=== PATIENT | female | born 1970 | race Caucasian/White ===

== ENCOUNTER 2016-05-23 23:01 | Emergency (ER) | payer OTHER ==
--- NOTE | 2016-05-23 23:28 | ED Physician Documentation ---
General Adult - HISTORIAN Historian: patient - HPI Stated Complaint: abd pain, R flank Chief Complaint: General Adult Timing: still present Further Comments: yes (Pt is a 45 yo female seen frequently in ER for various complaints. Pt presents with R flank pain that began earlier today, together with some nausea. Pt has had urinary frequency, but no dysuria. Pt has had cholecystectomy.) - ROS CONST: other (malaise) EYES/ENT: none CVS/RESP: none GI/: abdominal pain, nausea MS/SKIN/LYMPH: none - PAST HX Past History: other (chronic back pain, depression, GERD, DM2) Allergies/Adverse Reactions: Allergies Allergy/AdvReac Type Severity Reaction Status Date / Time aspirin Allergy Verified 05/23/16 23:30 carbamazepine [From Tegretol] Allergy Verified 05/23/16 23:30 cephalexin monohydrate Allergy Verified 05/23/16 23:30 [From Keflex] codeine [Codeine] Allergy Verified 05/23/16 23:30 diphenhydramine Allergy Verified 05/23/16 23:30 Penicillins Allergy Verified 05/23/16 23:30 strawberry Allergy Verified 05/23/16 23:30 Sulfa (Sulfonamide Allergy Verified 05/23/16 23:30 Antibiotics) [Sulfa(Sulfonamide Antibiotics)] tramadol Allergy Verified 05/23/16 23:30 Home Medications: Ambulatory Orders Medication Instructions Recorded Aripiprazole [Abilify] 10 mg PO HS 05/27/12 Cholecalciferol (Vitamin D3) 1,000 unit PO D 05/27/12 [Vitamin D-3] DULoxetine HCL [Cymbalta] 60 mg PO D 05/27/12 Gabapentin [Neurontin] 300 mg PO D 05/27/12 Multivitamin [Daily Multivitamin] 1 each PO D 05/27/12 Potassium Chloride [Klor-Con M20] 20 meq PO BID 05/27/12 Rosuvastatin Calcium [Crestor] 20 mg PO D 05/27/12 Spironolactone 25 mg PO D 05/27/12 Insulin Glargine,Hum.rec.anlog 40 unit SUBCUT BID 11/12/13 [Lantus Solostar] Furosemide [Lasix] 20 mg PO D 02/04/14 traZODone HCL [Desyrel] 50 mg PO HS 02/24/14 Metformin HCl ER [Glucophage Xr] 1,000 mg PO 0730 05/25/14 Esomeprazole Magnesium [Nexium] 40 mg PO D 09/03/14 Topiramate [Topiramate] 50 mg PO AM 09/03/14 rOPINIRole HCL [Requip] 1 mg PO HS 09/03/14 Albuterol Sulfate [Proair HFA] 1 inh IH Q4 PRN 01/04/15 Sertraline HCl [Zoloft] 100 mg PO D 01/04/15 Sumatriptan Succinate [Imitrex] 100 mg PO PRN PRN 01/04/15 Metoclopramide HCl [Reglan] 1 tab PO QID 05/23/15 Baclofen [Liorasal] 20 mg PO TID 09/01/15 Clindamycin HCl [Cleocin] 300 mg PO Q8 #30 capsule 12/14/15 - SOCIAL HX Smoking History: non-smoker - FAMILY HX Family History: No - VITAL SIGNS Vital Signs: Vital Signs Temp Pulse Resp BP Pulse Ox 118/58 04/27/16 02:15 - REVIEWED ASSESSMENTS Nursing Assessment Reviewed: Yes Vitals Reviewed: Yes Progress - Progress Progress: NS 1 L IVF bolus Zofran 4 mg IV improved General Adult Physical Exam - PHYSICAL EXAM GENERAL APPEARANCE: mild distress EENT: eye inspection normal, pharynx normal NECK: normal inspection, supple RESPIRATORY: no resp distress, chest non-tender, breath sounds normal CVS: reg rate & rhythm, heart sounds normal ABDOMEN: soft, tenderness (RUQ), decreased BS BACK: normal inspection, no CVA tenderness SKIN: warm/dry, normal color EXTREMITIES: non-tender, normal range of motion, no evidence of injury NEURO: oriented X3, motor nml, sensation nml Discharge Clincal Impression: Abdominal pain Qualifiers: Abdominal location: right upper quadrant Qualified Code(s): R10.11 - Right upper quadrant pain Referrals: Myla Carlson MD [Primary Care Provider] - Home Medications: Ambulatory Orders Aripiprazole [Abilify] 10 mg PO HS 05/27/12 Cholecalciferol (Vitamin D3) [Vitamin D-3] 1,000 unit PO D 05/27/12 DULoxetine HCL [Cymbalta] 60 mg PO D 05/27/12 Gabapentin [Neurontin] 300 mg PO D 05/27/12 Multivitamin [Daily Multivitamin] 1 each PO D 05/27/12 Potassium Chloride [Klor-Con M20] 20 meq PO BID 05/27/12 Rosuvastatin Calcium [Crestor] 20 mg PO D 05/27/12 Spironolactone 25 mg PO D 05/27/12 Insulin Glargine,Hum.rec.anlog [Lantus Solostar] 40 unit SUBCUT BID 11/12/13 Furosemide [Lasix] 20 mg PO D 02/04/14 traZODone HCL [Desyrel] 50 mg PO HS 02/24/14 Metformin HCl ER [Glucophage Xr] 1,000 mg PO 0730 05/25/14 Esomeprazole Magnesium [Nexium] 40 mg PO D 09/03/14 Topiramate [Topiramate] 50 mg PO AM 09/03/14 rOPINIRole HCL [Requip] 1 mg PO HS 09/03/14 Albuterol Sulfate [Proair HFA] 1 inh IH Q4 PRN 01/04/15 Sertraline HCl [Zoloft] 100 mg PO D 01/04/15 Sumatriptan Succinate [Imitrex] 100 mg PO PRN PRN 01/04/15 Metoclopramide HCl [Reglan] 1 tab PO QID 05/23/15 Baclofen [Liorasal] 20 mg PO TID 09/01/15 Clindamycin HCl [Cleocin] 300 mg PO Q8 #30 capsule 12/14/15 Condition: Good Decision to Admit: NO Decision Time: 00:34
[2016-05-24] MEDS: ONDANSETRON HCL/PF 4 MG/ 2ML VIAL IVP ONE
[2016-05-24] MEDS: 0.9 % SODIUM CHLORIDE 500 ML IV ONE
[2016-05-24 00:21] LABS: eGFR (African) > 60; eGFR (Non-African) > 60
[2016-05-24 00:22] LABS: BASOPHILS % 0.3 (0.0-1.5); EOSINOPHILS % 2.6 % (0.0-6.8); LYMPHOCYTES # 1.8 # k/uL (0.6-4.0); MEAN CORPUSCULAR HEMOGLOBIN 24.2 pg (28.0-34.0); MONOCYTES # 0.3 # k/uL (0.0-0.9); MONOCYTES % 4.2 % (0.0-11.0); NEUTROPHILS # 4.4 # k/uL (1.4-7.7)
[2016-05-24 01:28] VITALS: BP 118/56
[2016-05-24 06:43] LABS: APPEARANCE,URINE CLEAR (CLEAR); COLOR,URINE YELLOW (YELLOW); OCCULT BLOOD,URINE NEGATIVE (NEGATIVE); PH URINE 7.5 (5.0 - 8.0); UROBILINOGEN URINE 0.2 Eu (0.2-1.0)
--- NOTE | 2016-05-24 06:44 | Diagnostic Imaging Report ---
Report Submission Date: May 23, 2016 11:55:09 PM PLANT INSPECTOR Patient ~ Study Name: ODELL CAPUTO ~ Date: May 23, 2016 11:43:14 PM PLANT INSPECTOR ~ Modality Type: CR Gender: F ~ Description: ABDOMEN : 74 ~ Institution: [facility] Physician: JOANN BARROW ~ ~ ~ ~ KUB Clinical history: Abdominal pain Technique ap supine radiograph of the abdomen Findings: The bowel gas pattern is nonspecific. No renal calcifications are seen. The bones are within normal limits. No abdominal masses identified. Clips of previous cholecystectomy are present. Impression: Postoperative changes of cholecystectomy otherwise Negative KUB ~ Electronically signed on May 23, 2016 11:55:09 PM PLANT INSPECTOR by: Prem RODNEY
== END 2016-05-24 00:55 ==
LOC: ED 23:01
DX: R10.11 Right upper quadrant pain (principal)
CPT/HCPCS: 74000; 80053; 81002; 82150; 85025; J2405; J7060; 96361; 96374; 99283; S1016

== ENCOUNTER 2016-06-06 21:24 | Emergency (ER) | payer OTHER ==
[2016-06-06] MEDS ORDERED: PROMETHAZINE HCL 25 MG/ML VIAL IM ONE (22:46)
[2016-06-06] MEDS ORDERED: 0.9 % SODIUM CHLORIDE 1,000 ML IV ONE (22:57)
--- NOTE | 2016-06-06 23:45 | ED Physician Documentation ---
General Adult - HISTORIAN Historian: patient - HPI Stated Complaint: N/V Chief Complaint: General Adult Additional Information: Began frequent vomiting this afternoon. Has frontal headache. No fever or diarrhea. No abdominal pain but sore muscles from retching. Last finger stick was 145 at about 1800. No insulin taken since vomiting began. - ROS CONST: denies: fever - PAST HX Past History: other (IDDM; seizure disorder) Allergies/Adverse Reactions: Allergies Allergy/AdvReac Type Severity Reaction Status Date / Time aspirin Allergy Verified 06/06/16 22:29 carbamazepine [From Tegretol] Allergy Verified 06/06/16 22:29 cephalexin monohydrate Allergy Verified 06/06/16 22:29 [From Keflex] codeine [Codeine] Allergy Verified 06/06/16 22:29 diphenhydramine Allergy Verified 06/06/16 22:29 Penicillins Allergy Verified 06/06/16 22:29 strawberry Allergy Verified 06/06/16 22:29 Sulfa (Sulfonamide Allergy Verified 06/06/16 22:29 Antibiotics) [Sulfa(Sulfonamide Antibiotics)] tramadol Allergy Verified 06/06/16 22:29 Home Medications: Ambulatory Orders Medication Instructions Recorded Aripiprazole [Abilify] 10 mg PO HS 05/27/12 Cholecalciferol (Vitamin D3) 1,000 unit PO D 05/27/12 [Vitamin D-3] DULoxetine HCL [Cymbalta] 60 mg PO D 05/27/12 Gabapentin [Neurontin] 300 mg PO D 05/27/12 Multivitamin [Daily Multivitamin] 1 each PO D 05/27/12 Potassium Chloride [Klor-Con M20] 20 meq PO BID 05/27/12 Rosuvastatin Calcium [Crestor] 20 mg PO D 05/27/12 Spironolactone 25 mg PO D 05/27/12 Insulin Glargine,Hum.rec.anlog 40 unit SUBCUT BID 11/12/13 [Lantus Solostar] Furosemide [Lasix] 20 mg PO D 02/04/14 traZODone HCL [Desyrel] 50 mg PO HS 02/24/14 Metformin HCl ER [Glucophage Xr] 1,000 mg PO 0730 05/25/14 Esomeprazole Magnesium [Nexium] 40 mg PO D 09/03/14 Topiramate [Topiramate] 50 mg PO AM 04/22/15 rOPINIRole HCL [Requip] 1 mg PO HS 09/03/14 Albuterol Sulfate [Proair HFA] 1 inh IH Q4 PRN 01/04/15 Sertraline HCl [Zoloft] 100 mg PO D 01/04/15 Sumatriptan Succinate [Imitrex] 100 mg PO PRN PRN 01/04/15 Metoclopramide HCl [Reglan] 1 tab PO QID 05/23/15 Baclofen [Liorasal] 20 mg PO TID 09/01/15 Clindamycin HCl [Cleocin] 300 mg PO Q8 #30 capsule 12/14/15 - SOCIAL HX Smoking History: cigarettes - FAMILY HX Family History: No - VITAL SIGNS Vital Signs: Vital Signs Temp Pulse Resp BP Pulse Ox 98.2 F 83 20 138/75 95 06/06/16 22:00 06/06/16 22:00 06/06/16 22:00 06/06/16 22:00 06/06/16 22:00 - REVIEWED ASSESSMENTS Nursing Assessment Reviewed: Yes Vitals Reviewed: Yes Progress - Progress Progress: 0029, 2L NS. Eating ice chips. Nausea and ZARAGOZA resolved. ED Results Lab/Radiology - Orders Orders: ED Orders Category Date Time Status Place Saline Lock/IV Now Care 06/06/16 22:57 Active 0.9 % Sodium Chloride [Normal Saline] 1,000 ml Med 06/06/16 22:57 Active IV Q1H Chem Sticks Med 06/06/16 23:42 Ordered 1 each MC CHEMQ PRN Ketorolac Tromethamine [Toradol] Med 06/06/16 23:39 Once 30 mg IVP NOW ONE Promethazine HCl [Phenergan] Med 06/06/16 22:46 Discontinued 25 mg IM NOW ONE General Adult Physical Exam - PHYSICAL EXAM GENERAL APPEARANCE: mild distress EENT: eye inspection normal, ENT inspection normal, pharynx normal, dry mucous membranes (mild) NECK: normal inspection, supple RESPIRATORY: no resp distress, breath sounds normal CVS: reg rate & rhythm, heart sounds normal, no murmur ABDOMEN: soft, normal bowel sounds, no distension, tenderness (slight, diffuse) RECTAL: deferred BACK: normal inspection SKIN: warm/dry, normal color EXTREMITIES: no evidence of injury NEURO: CN's nml as tested, motor nml, sensation nml, cognition normal Discharge Clincal Impression: Nausea and vomiting Qualifiers: Vomiting type: unspecified Vomiting Intractability: non-intractable Qualified Code(s): R11.2 - Nausea with vomiting, unspecified Home Medications: Ambulatory Orders Aripiprazole [Abilify] 10 mg PO HS 05/27/12 Cholecalciferol (Vitamin D3) [Vitamin D-3] 1,000 unit PO D 05/27/12 DULoxetine HCL [Cymbalta] 60 mg PO D 05/27/12 Gabapentin [Neurontin] 300 mg PO D 05/27/12 Multivitamin [Daily Multivitamin] 1 each PO D 05/27/12 Potassium Chloride [Klor-Con M20] 20 meq PO BID 05/27/12 Rosuvastatin Calcium [Crestor] 20 mg PO D 05/27/12 Spironolactone 25 mg PO D 05/27/12 Insulin Glargine,Hum.rec.anlog [Lantus Solostar] 40 unit SUBCUT BID 11/12/13 Furosemide [Lasix] 20 mg PO D 02/04/14 traZODone HCL [Desyrel] 50 mg PO HS 02/24/14 Metformin HCl ER [Glucophage Xr] 1,000 mg PO 0730 05/25/14 Esomeprazole Magnesium [Nexium] 40 mg PO D 09/03/14 Topiramate [Topiramate] 50 mg PO AM 09/03/14 rOPINIRole HCL [Requip] 1 mg PO HS 09/03/14 Albuterol Sulfate [Proair HFA] 1 inh IH Q4 PRN 01/04/15 Sertraline HCl [Zoloft] 100 mg PO D 01/04/15 Sumatriptan Succinate [Imitrex] 100 mg PO PRN PRN 01/04/15 Metoclopramide HCl [Reglan] 1 tab PO QID 05/23/15 Baclofen [Liorasal] 20 mg PO TID 09/01/15 Clindamycin HCl [Cleocin] 300 mg PO Q8 #30 capsule 12/14/15 Condition: Good Disposition: 01 HOME, SELF-CARE Decision to Admit: NO Decision Time: 00:32
[2016-06-06] MEDS: KETOROLAC TROMETHAMINE 30 MG/1ML VIAL IVP ONE (23:49)
[2016-06-07] MEDS ORDERED: 0.9 % SODIUM CHLORIDE 1,000 ML IV ONE (00:01)
[2016-06-07] MEDS: KETOROLAC TROMETHAMINE 30 MG/1ML VIAL IVP ONE (00:11)
[2016-06-07 01:25] VITALS: BP 115/62
[2016-06-07 05:36] LABS: APPEARANCE,URINE CLEAR (CLEAR); COLOR,URINE YELLOW (YELLOW)
[2016-06-07 05:37] LABS: OCCULT BLOOD,URINE NEGATIVE (NEGATIVE); PH URINE 5.5 (5.0 - 8.0); UROBILINOGEN URINE 0.2 Eu (0.2-1.0)
== END 2016-06-07 01:05 | disposition home or self-care (01) ==
LOC: ED 21:24
DX: R11.2 Nausea with vomiting, unspecified (principal)
CPT/HCPCS: 81002; 96372; 96374; 99283; J1885; J2550; J7030; S1016

== ENCOUNTER 2016-09-10 01:44 | Emergency (ER) | payer OTHER ==
[2016-09-10] MEDS ORDERED: DOXYCYCLINE MONOHYDRATE 100 MG CAPSULE PO ONE (02:02)
[2016-09-10] MEDS ORDERED: BENZONATATE 100 MG CAPSULE PO ONE (02:03)
[2016-09-10 02:16] VITALS: BP 140/78
--- NOTE | 2016-09-10 03:22 | ED Physician Documentation ---
Upper Respiratory Symptoms - HISTORIAN Historian: patient - HPI Stated Complaint: sinus infection Chief Complaint: Upper Respiratory Symptoms Additional Information: sinus congestion, cough x 1 week Onset: days ago (7) Duration: sudden-Onset Context: denies: recent foreign travel, insect bite(s), tick(s), recent chemotherapy, multiple patients, same sx Severity: moderate Associated Symptoms: fever, runny nose, sinus pain, sinus drainage, sore throat , productive cough Worsened by Deep Breath: No Further Comments: no - ROS CONST/EYES: denies: weakness, eye redness, eye itching CVS/RESP: none LYMPH: denies: leg swelling, rash, swollen glands, ankle swelling GI/: none. denies: abdominal pain, problems urinating, vomiting, nausea, diarrhea, black stools NEURO/PSYCH: denies: fainting, dizziness, confusion, anxiety, depression MS/SKIN: denies: joint pain, muscle aches, rash - PAST HX Lung Disease: none PE Risk Factors: none Surgeries/Procedures: none Immunizations: referred to PCP Allergies/Adverse Reactions: Allergies Allergy/AdvReac Type Severity Reaction Status Date / Time aspirin Allergy Verified 09/10/16 01:54 carbamazepine [From Tegretol] Allergy Verified 09/10/16 01:54 cephalexin monohydrate Allergy Verified 09/10/16 01:54 [From Keflex] codeine [Codeine] Allergy Verified 09/10/16 01:54 diphenhydramine Allergy Verified 09/10/16 01:54 Penicillins Allergy Verified 09/10/16 01:54 strawberry Allergy Verified 09/10/16 01:54 Sulfa (Sulfonamide Allergy Verified 09/10/16 01:54 Antibiotics) [Sulfa(Sulfonamide Antibiotics)] tramadol Allergy Verified 09/10/16 01:54 Home Medications: Ambulatory Orders Medication Instructions Recorded Aripiprazole [Abilify] 10 mg PO HS 05/27/12 Cholecalciferol (Vitamin D3) 1,000 unit PO D 05/27/12 [Vitamin D-3] DULoxetine HCL [Cymbalta] 60 mg PO D 05/27/12 Gabapentin [Neurontin] 300 mg PO D 05/27/12 Multivitamin [Daily Multivitamin] 1 each PO D 05/27/12 Potassium Chloride [Klor-Con M20] 20 meq PO BID 05/27/12 Rosuvastatin Calcium [Crestor] 20 mg PO D 05/27/12 Spironolactone 25 mg PO D 05/27/12 Insulin Glargine,Hum.rec.anlog 40 unit SUBCUT BID 11/12/13 [Lantus Solostar] Furosemide [Lasix] 20 mg PO D 02/04/14 traZODone HCL [Desyrel] 50 mg PO HS 02/24/14 Metformin HCl ER [Glucophage Xr] 1,000 mg PO 0730 05/25/14 Esomeprazole Magnesium [Nexium] 40 mg PO D 09/03/14 Topiramate [Topiramate] 50 mg PO AM 09/03/14 rOPINIRole HCL [Requip] 1 mg PO HS 09/03/14 Albuterol Sulfate [Proair HFA] 1 inh IH Q4 PRN 01/04/15 Sertraline HCl [Zoloft] 100 mg PO D 01/04/15 Sumatriptan Succinate [Imitrex] 100 mg PO PRN PRN 01/04/15 Metoclopramide HCl [Reglan] 1 tab PO QID 05/23/15 Baclofen [Liorasal] 20 mg PO TID 09/01/15 - SOCIAL HX Smoking History: non-smoker Alcohol Use: none Drug Use: none - FAMILY HX Family History: no significant history - VITAL SIGNS Vital Signs: Vital Signs Temp Pulse Resp BP Pulse Ox 98.4 F 88 16 140/78 99 09/10/16 02:15 09/10/16 02:15 09/10/16 02:15 09/10/16 02:15 09/10/16 02:15 Progress - Results/Orders Results/Orders: no testing ordered - Progress Progress: pt. given amoxicillin tessalon perles and mucinex ds in er p.o. Critical Care Note - Critical Care Note Total Time (mins): 0 ED Results Lab/Radiology - Lab Results Lab Results: none ordered - Radiology Radiology Impressions: none ordered - Orders Orders: ED Orders Category Date Time Status Benzonatate [Tessalon] Med 09/10/16 02:03 Discontinued 200 mg PO NOW ONE Doxycycline Monohydrate [Vibramycin] Med 09/10/16 02:02 Discontinued 100 mg PO NOW ONE guaiFENesin [Mucinex] Med 09/10/16 02:03 Discontinued 1,200 mg PO NOW ONE Upper Respiratory Symptoms - EXAM General Appearance: alert, mild distress EENT: eyes nml inspection, nml ENT inspection, lids & conjunct. nml, PERRL, ear nml, pain over sinuses, frontal, maxillary, ethmoid Neck: normal inspection, thyroid normal, supple Respiratory: no resp. distress, breath sounds nml, no pain on inspiration, speaks full sentences Abdomen: non-tender, no organomegaly, nml bowel sounds, no distention CVS: reg rate & rhythm, heart sounds normal, equal pulses, no murmur, no gallop , PMI nml, no JVD Skin: color nml, no rash, warm,dry Extremities: non-tender, normal range of motion, no evidence of injury, no edema Neuro/Psych: oriented x3, neuro intact, mood/affect nml, disoriented Discharge Clincal Impression: sinusitis Referrals: Myla Carlson MD [Primary Care Provider] - 2 Days Home Medications: Ambulatory Orders Aripiprazole [Abilify] 10 mg PO HS 05/27/12 Cholecalciferol (Vitamin D3) [Vitamin D-3] 1,000 unit PO D 05/27/12 DULoxetine HCL [Cymbalta] 60 mg PO D 05/27/12 Gabapentin [Neurontin] 300 mg PO D 05/27/12 Multivitamin [Daily Multivitamin] 1 each PO D 05/27/12 Potassium Chloride [Klor-Con M20] 20 meq PO BID 05/27/12 Rosuvastatin Calcium [Crestor] 20 mg PO D 05/27/12 Spironolactone 25 mg PO D 05/27/12 Insulin Glargine,Hum.rec.anlog [Lantus Solostar] 40 unit SUBCUT BID 11/12/13 Furosemide [Lasix] 20 mg PO D 02/04/14 traZODone HCL [Desyrel] 50 mg PO HS 02/24/14 Metformin HCl ER [Glucophage Xr] 1,000 mg PO 0730 05/25/14 Esomeprazole Magnesium [Nexium] 40 mg PO D 09/03/14 Topiramate [Topiramate] 50 mg PO AM 09/03/14 rOPINIRole HCL [Requip] 1 mg PO HS 09/03/14 Albuterol Sulfate [Proair HFA] 1 inh IH Q4 PRN 01/04/15 Sertraline HCl [Zoloft] 100 mg PO D 01/04/15 Sumatriptan Succinate [Imitrex] 100 mg PO PRN PRN 01/04/15 Metoclopramide HCl [Reglan] 1 tab PO QID 05/23/15 Baclofen [Liorasal] 20 mg PO TID 09/01/15 Comments: discharged with scripts fro tessalon, doxycycline 100 mg and claritin -d 24 Condition: Stable Disposition: 01 HOME, SELF-CARE Decision to Admit: NO Decision Time: 15:00
== END 2016-09-10 02:15 | disposition home or self-care (01) ==
LOC: ED 01:44
DX: J32.9 Chronic sinusitis, unspecified (principal)
CPT/HCPCS: 99283; A9270-GY

== ENCOUNTER 2016-09-29 03:08 | Emergency (ER) | payer OTHER ==
[2016-09-29] MEDS ORDERED: KETOROLAC TROMETHAMINE 60 MG/2 ML VIAL IM ONE (03:59)
--- NOTE | 2016-09-29 04:01 | ED Physician Documentation ---
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 Took a robaxin and soaked in epsom salts w/o relief. rove to ER. - ROS CONST: no problems - PAST HX Past History: other (chronic pain, drug seeking behavior) Allergies/Adverse Reactions: Allergies Allergy/AdvReac Type Severity Reaction Status Date / Time aspirin Allergy Verified 09/29/16 03:38 carbamazepine [From Tegretol] Allergy Verified 09/29/16 03:38 cephalexin monohydrate Allergy Verified 09/29/16 03:38 [From Keflex] codeine [Codeine] Allergy Verified 09/29/16 03:38 diphenhydramine Allergy Verified 09/29/16 03:38 Penicillins Allergy Verified 09/29/16 03:38 strawberry Allergy Verified 09/29/16 03:38 Sulfa (Sulfonamide Allergy Verified 09/29/16 03:38 Antibiotics) [Sulfa(Sulfonamide Antibiotics)] tramadol Allergy Verified 09/29/16 03:38 Home Medications: Ambulatory Orders Medication Instructions Recorded Aripiprazole [Abilify] 10 mg PO HS 05/27/12 Cholecalciferol (Vitamin D3) 1,000 unit PO D 05/27/12 [Vitamin D-3] DULoxetine HCL [Cymbalta] 60 mg PO D 05/27/12 Gabapentin [Neurontin] 300 mg PO D 05/27/12 Multivitamin [Daily Multivitamin] 1 each PO D 05/27/12 Potassium Chloride [Klor-Con M20] 20 meq PO BID 05/27/12 Rosuvastatin Calcium [Crestor] 20 mg PO D 05/27/12 Spironolactone 25 mg PO D 05/27/12 Insulin Glargine,Hum.rec.anlog 40 unit SUBCUT BID 11/12/13 [Lantus Solostar] Furosemide [Lasix] 20 mg PO D 02/04/14 traZODone HCL [Desyrel] 50 mg PO HS 02/24/14 Metformin HCl ER [Glucophage Xr] 1,000 mg PO 0730 05/25/14 Esomeprazole Magnesium [Nexium] 40 mg PO D 09/03/14 Topiramate [Topiramate] 50 mg PO AM 09/03/14 rOPINIRole HCL [Requip] 1 mg PO HS 09/03/14 Albuterol Sulfate [Proair HFA] 1 inh IH Q4 PRN 01/04/15 Sertraline HCl [Zoloft] 100 mg PO D 01/04/15 Sumatriptan Succinate [Imitrex] 100 mg PO PRN PRN 01/04/15 Metoclopramide HCl [Reglan] 1 tab PO QID 05/23/15 Baclofen [Liorasal] 20 mg PO TID 09/01/15 - SOCIAL HX Smoking History: cigarettes (1/2 PPD) - FAMILY HX Family History: No (no signif) - VITAL SIGNS Vital Signs: Vital Signs Temp Pulse Resp BP Pulse Ox 97.8 F 62 22 132/64 99 09/29/16 03:35 09/29/16 03:35 09/29/16 03:35 09/29/16 03:35 09/29/16 03:35 - REVIEWED ASSESSMENTS Nursing Assessment Reviewed: Yes Vitals Reviewed: Yes ED Results Lab/Radiology - Orders Orders: ED Orders Category Date Time Status Ketorolac Tromethamine [Toradol] Med 09/29/16 03:59 Once 60 mg IM NOW ONE General Adult Physical Exam - PHYSICAL EXAM GENERAL APPEARANCE: no distress (texting on phone.) EENT: eye inspection normal, ENT inspection normal NECK: normal inspection, supple RESPIRATORY: no resp distress, breath sounds normal CVS: reg rate & rhythm, heart sounds normal ABDOMEN: soft, normal bowel sounds RECTAL: deferred BACK: normal inspection, no CVA tenderness, other (no midline tenderness) SKIN: warm/dry, normal color EXTREMITIES: non-tender, normal range of motion (gait), no evidence of injury, other (no pain with spontaneous movements shoulders; full rom) NEURO: CN's nml as tested, motor nml, sensation nml, other (SLR positive conchita at 90+ degrees) Discharge Clincal Impression: Back pain Qualifiers: Back pain location: low back pain Chronicity: acute Back pain laterality: bilateral Sciatica presence: without sciatica Qualified Code(s): M54.5 - Low back pain Referrals: Myla Carlson MD [Primary Care Provider] - 2 Days Additional Instructions: Follow up with your provider as needed. Home Medications: Ambulatory Orders Aripiprazole [Abilify] 10 mg PO HS 05/27/12 Cholecalciferol (Vitamin D3) [Vitamin D-3] 1,000 unit PO D 05/27/12 DULoxetine HCL [Cymbalta] 60 mg PO D 05/27/12 Gabapentin [Neurontin] 300 mg PO D 05/27/12 Multivitamin [Daily Multivitamin] 1 each PO D 05/27/12 Potassium Chloride [Klor-Con M20] 20 meq PO BID 05/27/12 Rosuvastatin Calcium [Crestor] 20 mg PO D 05/27/12 Spironolactone 25 mg PO D 05/27/12 Insulin Glargine,Hum.rec.anlog [Lantus Solostar] 40 unit SUBCUT BID 11/12/13 Furosemide [Lasix] 20 mg PO D 02/04/14 traZODone HCL [Desyrel] 50 mg PO HS 02/24/14 Metformin HCl ER [Glucophage Xr] 1,000 mg PO 0730 05/25/14 Esomeprazole Magnesium [Nexium] 40 mg PO D 09/03/14 Topiramate [Topiramate] 50 mg PO AM 09/03/14 rOPINIRole HCL [Requip] 1 mg PO HS 09/03/14 Albuterol Sulfate [Proair HFA] 1 inh IH Q4 PRN 01/04/15 Sertraline HCl [Zoloft] 100 mg PO D 01/04/15 Sumatriptan Succinate [Imitrex] 100 mg PO PRN PRN 01/04/15 Metoclopramide HCl [Reglan] 1 tab PO QID 05/23/15 Baclofen [Liorasal] 20 mg PO TID 09/01/15 Condition: Good Disposition: 01 HOME, SELF-CARE Decision to Admit: NO Decision Time: 04:07
[2016-09-29 04:13] VITALS: BP 137/69
== END 2016-09-29 04:13 | disposition home or self-care (01) ==
LOC: ED 03:08
DX: M54.5 Low back pain (principal)
CPT/HCPCS: 96372; 99283; J1885

== ENCOUNTER 2016-11-02 01:25 | Emergency (ER) | payer OTHER ==
--- NOTE | 2016-11-02 02:09 | ED Physician Documentation ---
Lower Extremity Injury - HISTORIAN Historian: patient - HPI Stated Complaint: left knee pain Chief Complaint: Lower Extremity Injury Additional Information: Slipped in the grass and twisted left knee this evening. Took robaxin and naproxen. - ROS CONST: no problems - PAST HX Past History: other (chronic pain, IDDM) Allergies/Adverse Reactions: Allergies Allergy/AdvReac Type Severity Reaction Status Date / Time aspirin Allergy Verified 11/02/16 01:38 carbamazepine [From Tegretol] Allergy Verified 11/02/16 01:38 cephalexin monohydrate Allergy Verified 11/02/16 01:38 [From Keflex] codeine [Codeine] Allergy Verified 11/02/16 01:38 diphenhydramine Allergy Verified 11/02/16 01:38 Penicillins Allergy Verified 11/02/16 01:38 strawberry Allergy Verified 11/02/16 01:38 Sulfa (Sulfonamide Allergy Verified 11/02/16 01:38 Antibiotics) [Sulfa(Sulfonamide Antibiotics)] tramadol Allergy Verified 11/02/16 01:38 Home Medications: Ambulatory Orders Medication Instructions Recorded Aripiprazole [Abilify] 10 mg PO HS 05/27/12 Cholecalciferol (Vitamin D3) 1,000 unit PO D 05/27/12 [Vitamin D-3] DULoxetine HCL [Cymbalta] 60 mg PO D 05/27/12 Gabapentin [Neurontin] 300 mg PO D 05/27/12 Multivitamin [Daily Multivitamin] 1 each PO D 05/27/12 Potassium Chloride [Klor-Con M20] 20 meq PO BID 05/27/12 Rosuvastatin Calcium [Crestor] 20 mg PO D 05/27/12 Spironolactone 25 mg PO D 05/27/12 Insulin Glargine,Hum.rec.anlog 40 unit SUBCUT BID 11/12/13 [Lantus Solostar] Furosemide [Lasix] 20 mg PO D 02/04/14 traZODone HCL [Desyrel] 50 mg PO HS 02/24/14 Metformin HCl ER [Glucophage Xr] 1,000 mg PO 0730 05/25/14 Esomeprazole Magnesium [Nexium] 40 mg PO D 09/03/14 Topiramate [Topiramate] 50 mg PO AM 09/03/14 rOPINIRole HCL [Requip] 1 mg PO HS 09/03/14 Albuterol Sulfate [Proair HFA] 1 inh IH Q4 PRN 01/04/15 Sertraline HCl [Zoloft] 100 mg PO D 01/04/15 Sumatriptan Succinate [Imitrex] 100 mg PO PRN PRN 01/04/15 Metoclopramide HCl [Reglan] 1 tab PO QID 05/23/15 Baclofen [Liorasal] 20 mg PO TID 09/01/15 - SOCIAL HX Smoking History: non-smoker - FAMILY HX Family History: no significant history - VITAL SIGNS Vital Signs: Vital Signs Temp Pulse Resp BP Pulse Ox 83 16 130/63 99 11/02/16 01:30 11/02/16 01:30 11/02/16 01:30 11/02/16 01:30 - REVIEWED ASSESSMENTS Nursing Assessment Reviewed: Yes Vitals Reviewed: Yes Progress - Progress Progress: Left knee 3 views History: Pain after fall Findings: Obesity is observed without fracture, dislocation, arthropathy, focal bone lesion, or joint effusion. Electronically signed on Nov 02, 2016 1:56:03 AM CDT by: Elio Islas ED Results Lab/Radiology - Orders Orders: ED Orders Category Date Time Status KNEE 3 VIEWS [RAD] Stat Exams 11/02/16 Taken Lower Extremities Injury Phy - Physical Exam General Appearance: alert, mild distress Hips: bilateral hip: no evidence of injury Legs: bilateral: normal inspection, no evidence of injury Knees: left: swelling (diffuse), bilateral: normal inspection, normal range of motion, no evidence of injury Ankle: bilateral: normal inspection, no evidence of injury Foot: bilateral foot: normal inspection, no evidence of injury Ligaments: No: pain on anterior drawer, laxity on anterior drawer, pain on posterior drawer, laxity on posterior drawe, pain on medial stress, laxity on medial stress, pain on lateral stress, laxity on lateral stress Gait: antalgic gait Neuro/Vascular/Tendon: no vascular compromise, motor nml, sensation nml Head/ENT: nml inspection Neck/Back: nml inspection Resp/CVS: no resp. distress Discharge Clincal Impression: Knee strain Qualifiers: Encounter type: initial encounter Laterality: left Qualified Code(s): S86.912A - Strain of unspecified muscle(s) and tendon(s) at lower leg level, left leg, initial encounter Referrals: Primary Doctor,No [Primary Care Provider] - 2 Days Home Medications: Ambulatory Orders Aripiprazole [Abilify] 10 mg PO HS 05/27/12 Cholecalciferol (Vitamin D3) [Vitamin D-3] 1,000 unit PO D 05/27/12 DULoxetine HCL [Cymbalta] 60 mg PO D 05/27/12 Gabapentin [Neurontin] 300 mg PO D 05/27/12 Multivitamin [Daily Multivitamin] 1 each PO D 05/27/12 Potassium Chloride [Klor-Con M20] 20 meq PO BID 05/27/12 Rosuvastatin Calcium [Crestor] 20 mg PO D 05/27/12 Spironolactone 25 mg PO D 05/27/12 Insulin Glargine,Hum.rec.anlog [Lantus Solostar] 40 unit SUBCUT BID 11/12/13 Furosemide [Lasix] 20 mg PO D 02/04/14 traZODone HCL [Desyrel] 50 mg PO HS 02/24/14 Metformin HCl ER [Glucophage Xr] 1,000 mg PO 0730 05/25/14 Esomeprazole Magnesium [Nexium] 40 mg PO D 09/03/14 Topiramate [Topiramate] 50 mg PO AM 09/03/14 rOPINIRole HCL [Requip] 1 mg PO HS 09/03/14 Albuterol Sulfate [Proair HFA] 1 inh IH Q4 PRN 01/04/15 Sertraline HCl [Zoloft] 100 mg PO D 01/04/15 Sumatriptan Succinate [Imitrex] 100 mg PO PRN PRN 01/04/15 Metoclopramide HCl [Reglan] 1 tab PO QID 05/23/15 Baclofen [Liorasal] 20 mg PO TID 09/01/15 Condition: Good Disposition: 01 HOME, SELF-CARE Decision to Admit: NO Decision Time: 02:05
[2016-11-02 02:15] VITALS: BP 130/62
--- NOTE | 2016-11-02 06:34 | Diagnostic Imaging Report ---
SOLEDAD MAYA~ [facility] [address] [facility] [address] [place] [address]. [id number] ~ ~ ~ ~ Report Submission Date: Nov 02, 2016 1:56:03 AM CDT Patient ~ Study Name: ODELL CAPUTO ~ Date: Nov 02, 2016 1:37:20 AM CDT ~ Modality Type: CR Gender: F ~ Description: LOWER EXTREMITY : 74 ~ Institution: [facility] Physician: SOLEDAD MAYA ~ ~ ~ ~ Left knee 3 views History: Pain after fall Findings: Obesity is observed without fracture, dislocation, arthropathy, focal bone lesion, or joint effusion. ~ Electronically signed on Nov 02, 2016 1:56:03 AM CDT by: Elio RODNEY
== END 2016-11-02 02:00 | disposition home or self-care (01) ==
LOC: ED 01:25
DX: S86.912A Strain of unspecified muscle(s) and tendon(s) at lower leg level, left leg, initial encounter (principal); X58.XXXA Exposure to other specified factors, initial encounter; Y93.9 Activity, unspecified; Y99.9 Unspecified external cause status
CPT/HCPCS: 73562; 99283

== ENCOUNTER 2017-03-15 19:17 | Emergency (ER) | payer OTHER ==
[2017-03-15 19:34] VITALS: BP 141/67
--- NOTE | 2017-03-15 19:49 | ED Physician Documentation ---
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 her cond exab 1600 today Severity: mild, moderate - Associated Symptoms Urinary Symptoms: none Discharge: vaginal discharge - ROS CONST: no problems GI/: denies: nausea, vomiting, decreased appetite CVS/RESP: none EYES/ENT: none NEURO/PSYCH: none MS/SKIN/LYMPH: none - PAST HX Past History: other (DM GERD CIRRHOSIS LIVER DEPRESSION [facility] GERD) Surgeries/Procedures: , hysterectomy, cholecystectomy Allergies/Adverse Reactions: Allergies Allergy/AdvReac Type Severity Reaction Status Date / Time aspirin Allergy Verified 03/15/17 19:34 carbamazepine [From Tegretol] Allergy Verified 03/15/17 19:34 cephalexin monohydrate Allergy Verified 03/15/17 19:34 [From Keflex] codeine [Codeine] Allergy Verified 03/15/17 19:34 diphenhydramine Allergy Verified 03/15/17 19:34 Penicillins Allergy Verified 03/15/17 19:34 strawberry Allergy Verified 03/15/17 19:34 Sulfa (Sulfonamide Allergy Verified 03/15/17 19:34 Antibiotics) [Sulfa(Sulfonamide Antibiotics)] tramadol Allergy Verified 03/15/17 19:34 Home Medications: Ambulatory Orders Medication Instructions Recorded Aripiprazole [Abilify] 10 mg PO HS 05/27/12 Cholecalciferol (Vitamin D3) 1,000 unit PO D 05/27/12 [Vitamin D-3] DULoxetine HCL [Cymbalta] 60 mg PO D 05/27/12 Gabapentin [Neurontin] 300 mg PO D 05/27/12 Multivitamin [Daily Multivitamin] 1 each PO D 05/27/12 Potassium Chloride [Klor-Con M20] 20 meq PO BID 05/27/12 Rosuvastatin Calcium [Crestor] 20 mg PO D 05/27/12 Spironolactone 25 mg PO D 05/27/12 Insulin Glargine,Hum.rec.anlog 40 unit SUBCUT BID 11/12/13 [Lantus Solostar] Furosemide [Lasix] 20 mg PO D 02/04/14 traZODone HCL [Desyrel] 50 mg PO HS 02/24/14 Metformin HCl ER [Glucophage Xr] 1,000 mg PO 0730 05/25/14 Esomeprazole Magnesium [Nexium] 40 mg PO D 09/03/14 Topiramate [Topiramate] 50 mg PO AM 09/03/14 rOPINIRole HCL [Requip] 1 mg PO HS 09/03/14 Albuterol Sulfate [Proair HFA] 1 inh IH Q4 PRN 01/04/15 Sertraline HCl [Zoloft] 100 mg PO D 01/04/15 Sumatriptan Succinate [Imitrex] 100 mg PO PRN PRN 01/04/15 Metoclopramide HCl [Reglan] 1 tab PO QID 05/23/15 Baclofen [Liorasal] 20 mg PO TID 09/01/15 Fluconazole [Diflucan] 200 mg PO D #5 tablet 03/15/17 - SOCIAL HX Smoking History: non-smoker Drug Use: none - FAMILY HX Family History: none - VITAL SIGNS Vital Signs: Vital Signs Temp Pulse Resp BP Pulse Ox 98.1 F 78 16 141/67 97 03/15/17 19:17 03/15/17 19:17 03/15/17 19:17 03/15/17 19:17 03/15/17 19:17 - REVIEWED ASSESSMENTS Nursing Assessment Reviewed: Yes Vitals Reviewed: Yes Female Urogenital Problems - EXAM General Appearance: mild distress, anxious EENT: no signs of dehydration Respiratory: no resp. distress, breath sounds nml CVS: reg rate & rhythm, heart sounds normal Abdomen: soft, non-tender Skin: color nml, no rash, warm,dry. No: cyanosis, diaphoresis, pallor Extremities: non-tender, normal range of motion Neuro: oriented X3 Discharge Clincal Impression: VAGINAL YEAST INFECTION Prescriptions: Fluconazole [Diflucan] 200 mg PO D #5 tablet Referrals: Primary Doctor,No [Primary Care Provider] - 2 Days Comments: PT REQUESTS DIFLUCAN"IT HAS ALWAYS HELPED BEFORE" HER HBA1C = 6.0 Condition: Good Disposition: 01 HOME, SELF-CARE Decision to Admit: NO Decision Time: 19:53
== END 2017-03-15 19:55 | disposition home or self-care (01) ==
LOC: ED 19:17
DX: B37.3 Candidiasis of vulva and vagina (principal)
CPT/HCPCS: 99283

== ENCOUNTER 2017-04-12 10:56 | Emergency (ER) | payer OTHER ==
[2017-04-12] MEDS ORDERED: methylPREDNISolone SOD SUCC 40 MG/ML VIAL IVP ONE (11:07)
--- NOTE | 2017-04-12 11:12 | ED Physician Documentation ---
General Adult - HISTORIAN Historian: patient - HPI Chief Complaint: General Adult Onset: minutes Further Comments: yes (46 year old female patient presents with complaint of shortness of breath, reports getting strawberry juice on her hands at work. Patient reports allergy to strawberries. Patient denies ingesting strawberries. ) - ROS CONST: no problems EYES/ENT: none CVS/RESP: shortness of breath. denies: chest pain, cough GI/: none MS/SKIN/LYMPH: none NEURO/PSYCH: denies: headache, dizziness, difficulty walking - PAST HX Past History: other (GERD, migraines) Other History: diabetes Type 2, other (bipolar) Allergies/Adverse Reactions: Allergies Allergy/AdvReac Type Severity Reaction Status Date / Time aspirin Allergy Verified 04/12/17 11:38 carbamazepine [From Tegretol] Allergy Verified 04/12/17 11:38 cephalexin monohydrate Allergy Verified 04/12/17 11:38 [From Keflex] codeine [Codeine] Allergy Verified 04/12/17 11:38 diphenhydramine Allergy Verified 04/12/17 11:38 Penicillins Allergy Verified 04/12/17 11:38 strawberry Allergy Verified 04/12/17 11:38 Sulfa (Sulfonamide Allergy Verified 04/12/17 11:38 Antibiotics) [Sulfa(Sulfonamide Antibiotics)] tramadol Allergy Verified 04/12/17 11:38 Home Medications: Ambulatory Orders Medication Instructions Recorded Aripiprazole [Abilify] 10 mg PO HS 05/27/12 Cholecalciferol (Vitamin D3) 1,000 unit PO D 05/27/12 [Vitamin D-3] Multivitamin [Daily Multivitamin] 1 each PO D 05/27/12 Potassium Chloride [Klor-Con M20] 20 meq PO BID 05/27/12 Rosuvastatin Calcium [Crestor] 20 mg PO D 05/27/12 Spironolactone 25 mg PO D 05/27/12 Insulin Glargine,Hum.rec.anlog 30 unit SUBCUT BID 11/12/13 [Lantus Solostar] traZODone HCL [Desyrel] 150 mg PO HS 02/24/14 Esomeprazole Magnesium [Nexium] 40 mg PO D 09/03/14 Topiramate [Topiramate] 200 mg PO BID 09/03/14 rOPINIRole HCL [Requip] 1 mg PO HS 09/03/14 Albuterol Sulfate [Proair HFA] 1 inh IH Q4 PRN 01/04/15 Sertraline HCl [Zoloft] 100 mg PO BID 01/04/15 Metoclopramide HCl [Reglan] 10 mg PO QID 05/23/15 Fluconazole [Diflucan] 200 mg PO D #5 tablet 03/15/17 Gabapentin [Neurontin] 200 mg PO DAILY 03/15/17 Metformin HCl [Glucophage] 1,000 mg PO [id number] 03/15/17 - SOCIAL HX Smoking History: cigarettes - FAMILY HX Family History: No - VITAL SIGNS Vital Signs: Vital Signs Temp Pulse Resp BP Pulse Ox 141/67 03/15/17 19:55 - REVIEWED ASSESSMENTS Nursing Assessment Reviewed: Yes Vitals Reviewed: Yes Progress - Progress Progress: Patient continues to c/o ED Results Lab/Radiology - Orders Orders: ED Orders Category Date Time Status methylPREDNISolone SOD SUCC [Solu-MEDROL] Med 04/12/17 11:07 Discontinued 40 mg IVP NOW ONE General Adult Physical Exam - PHYSICAL EXAM GENERAL APPEARANCE: [id number] N EENT: eye inspection normal, ENT inspection normal, pharynx normal, no signs of dehydration, SERGEI, no nystagmus, TM's nml RESPIRATORY: no resp distress, chest non-tender, breath sounds normal, other ( no wheezing or stridor auscultated. 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 Condition: Stable Disposition: 01 HOME, SELF-CARE Decision to Admit: NO Decision Time: 11:36
[2017-04-12] MEDS ORDERED: methylPREDNISolone ACETATE 40 MG/ML VIAL IM ONE (11:13)
[2017-04-12 11:51] VITALS: BP 127/68
== END 2017-04-12 11:48 | disposition home or self-care (01) ==
LOC: ED 10:56
DX: T78.1XXA Other adverse food reactions, not elsewhere classified, initial encounter (principal); X58.XXXA Exposure to other specified factors, initial encounter; Y93.9 Activity, unspecified; Y99.9 Unspecified external cause status
CPT/HCPCS: 96374; 99283; J2920; J1030; S1016

== ENCOUNTER 2017-05-25 20:50 | Emergency (ER) | payer OTHER ==
[2017-05-25] MEDS ORDERED: ONDANSETRON HCL/PF 4 MG/ 2ML VIAL IM ONE (21:11)
[2017-05-25] MEDS ORDERED: KETOROLAC TROMETHAMINE 60 MG/2 ML VIAL IM ONE (21:11)
--- NOTE | 2017-05-25 21:22 | ED Physician Documentation ---
Headache - HPI Stated Complaint: ZARAGOZA Chief Complaint: Headache Onset: hours Timing: abrupt New Gradual Onset: Yes Exposure To: none Severity: moderate Quality: similar to previous Associated Symptoms: sensitivity to light, nausea Preceding Symptoms: denies: visual disturbance, scotoma Exacerbated By: light, noise Further Comments: no - ROS NEURO/PSYCH: denies: confusion, anxiety, depression, fainting EYES/ENT: denies: sore throat, difficulty swallowing, sinus pain, drainage CVS/RESP: none GI/: denies: abdominal pain, diarrhea, problems urinating, incontinence MS/SKIN/LYMPH: denies: muscle aches, back pain, rash, skin lesions, swollen glands - PAST HX Medical History: other (anemia, anxiety, asthma, depression, dm, fibromyalgia, hyperlipidemia, htn, migraine) Surgical History: no surgical history Immunizations: referred to PCP Allergies/Adverse Reactions: Allergies Allergy/AdvReac Type Severity Reaction Status Date / Time aspirin Allergy Verified 05/06/17 01:08 carbamazepine [From Tegretol] Allergy Verified 05/06/17 01:08 cephalexin monohydrate Allergy Verified 05/06/17 01:08 [From Keflex] codeine [Codeine] Allergy Verified 05/06/17 01:08 diphenhydramine Allergy Verified 05/06/17 01:08 Penicillins Allergy Verified 05/06/17 01:08 strawberry Allergy Verified 05/06/17 01:08 Sulfa (Sulfonamide Allergy Verified 05/06/17 01:08 Antibiotics) [Sulfa(Sulfonamide Antibiotics)] tramadol Allergy Verified 05/06/17 01:08 Home Medications: Ambulatory Orders Medication Instructions Recorded Aripiprazole [Abilify] 10 mg PO HS 05/27/12 Cholecalciferol (Vitamin D3) 1,000 unit PO D 05/27/12 [Vitamin D-3] Multivitamin [Daily Multivitamin] 1 each PO D 05/27/12 Potassium Chloride [Klor-Con M20] 20 meq PO BID 05/27/12 Rosuvastatin Calcium [Crestor] 20 mg PO D 05/27/12 Spironolactone 25 mg PO D 05/27/12 Insulin Glargine,Hum.rec.anlog 30 unit SUBCUT BID 11/12/13 [Lantus Solostar] traZODone HCL [Desyrel] 150 mg PO HS 02/24/14 Esomeprazole Magnesium [Nexium] 40 mg PO D 09/03/14 Topiramate [Topiramate] 200 mg PO BID 09/03/14 rOPINIRole HCL [Requip] 1 mg PO HS 09/03/14 Albuterol Sulfate [Proair HFA] 1 inh IH Q4 PRN 01/04/15 Sertraline HCl [Zoloft] 100 mg PO BID 01/04/15 Metoclopramide HCl [Reglan] 10 mg PO QID 05/23/15 Gabapentin [Neurontin] 200 mg PO DAILY 03/15/17 Metformin HCl [Glucophage] 1,000 mg PO [id number] 03/15/17 Mirabegron [Myrbetriq] 25 mg PO DAILY 05/25/17 Montelukast Sodium [Singulair] 10 mg PO HS 05/25/17 - SOCIAL HX Smoking History: cigarettes Alcohol Use: occasionally Drug Use: none - Family HX Family History: migraine headaches - VITAL SIGNS Vital Signs: Vital Signs Temp Pulse Resp BP Pulse Ox 98.3 F 83 18 118/61 98 05/25/17 21:45 05/25/17 21:45 05/25/17 21:45 05/25/17 21:45 05/25/17 21:45 - REVIEWED ASSESSMENTS Nursing Assessment Reviewed: Yes Vitals Reviewed: Yes Progress - Results/Orders Results/Orders: no testing ordered - Progress Progress: Pt. given 60 mg Toradol and 8 mg Zofran IM in ER with improvement in headache and nausea. Critical Care Note - Critical Care Note Total Time (mins): 0 ED Results Lab/Radiology - Lab Results Lab Results: none taken - Radiology Radiology Impressions: none taken - Orders Orders: ED Orders Category Date Time Status Ketorolac Tromethamine [Toradol] Med 05/25/17 21:11 Discontinued 60 mg IM NOW ONE Ondansetron HCl/Pf [Zofran 4 mg/2 ml] Med 05/25/17 21:11 Discontinued 8 mg IM NOW ONE Headache Physical Exam - EXAM General Appearance: alert, moderate distress EENT: no facial swelling, eyes nml inspection, PERRL Neck: normal inspection, thyroid normal, supple Respiratory: no resp distress, chest non-tender, breath sounds normal CVS: reg. rate & rhythm, heart sounds nml Abdomen: non-tender, no organomegaly, nml bowel sounds Skin: color nml, no rash Extremitites: non-tender, normal range of motion, no evidence of injury, no edema - NEURO/PSYCH Higher Functions: alert, oriented x3, nml speech Cranial: nml as tested, no evidence of acute CVA Cerebellar: nml as tested Sensorimotor: motor nml, sensation nml Discharge Clincal Impression: Migraine Qualifiers: Migraine type: without aura Status migrainosus presence: without status migrainosus Intractability: intractable Qualified Code(s): G43.019 - Migraine without aura, intractable, without status migrainosus Referrals: Lucien Gracia MD [Primary Care Provider] - 2 Days Comments: Discharged in stable and improved condition 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 Condition: Stable Disposition: 01 HOME, SELF-CARE Decision to Admit: NO Decision Time: 21:23
[2017-05-25 21:46] VITALS: BP 118/61
== END 2017-05-25 21:45 | disposition home or self-care (01) ==
LOC: ED 20:50
DX: G43.019 Migraine without aura, intractable, without status migrainosus (principal)
CPT/HCPCS: 96372; 99282; 99283; J1885; J2405

== ENCOUNTER 2017-06-08 23:57 | Emergency (ER) | payer OTHER ==
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
[2017-06-09] MEDS ORDERED: ORPHENADRINE CITRATE 60 MG/2ML IM ONE (00:14)
[2017-06-09 00:55] VITALS: BP 128/72
== END 2017-06-09 00:50 | disposition home or self-care (01) ==
LOC: ED 23:57
DX: S46.912D Strain of unspecified muscle, fascia and tendon at shoulder and upper arm level, left arm, subsequent encounter (principal); X58.XXXD Exposure to other specified factors, subsequent encounter
CPT/HCPCS: 99282; 99283; J2360

== ENCOUNTER 2017-09-04 13:11 | Emergency (ER) | payer OTHER ==
--- NOTE | 2017-09-04 13:28 | ED Physician Documentation ---
Sore Throat/Dental Pain - HISTORIAN Historian: patient - HPI Stated Complaint: cough, congestion, sore throat Chief Complaint: Cough/ Upper Respiratory Onset: days ago (5) Associated Symptoms: fever, chills, sore throat, moderate, runny nose, congestion, L ear pain (itching ), cough. denies: unable to swallow, R ear pain Worsened By: nothing Further Comments: yes (She states 5 days ago she started to notice sinus congestion and runny nose. She states over the last 5 days she has had progression to headache, sinus pain and pressure, left ear itching, sore throat , cough (she has asthma), chest congestion) - ROS CONST: no problems CVS/RESP: denies: shortness of breath GI/: denies: nausea NEURO/PSYCH: headache (sinus pain ) - PAST HX Past History: tonsillectomy Other History: other Immunizations: UTD Allergies/Adverse Reactions: Allergies Allergy/AdvReac Type Severity Reaction Status Date / Time aspirin Allergy Verified 09/04/17 13:35 carbamazepine [From Tegretol] Allergy Verified 09/04/17 13:35 cephalexin monohydrate Allergy Verified 09/04/17 13:35 [From Keflex] codeine [Codeine] Allergy Verified 09/04/17 13:35 diphenhydramine Allergy Verified 09/04/17 13:35 Penicillins Allergy Verified 09/04/17 13:35 strawberry Allergy Verified 09/04/17 13:35 Sulfa (Sulfonamide Allergy Verified 09/04/17 13:35 Antibiotics) [Sulfa(Sulfonamide Antibiotics)] tramadol Allergy Verified 09/04/17 13:35 Home Medications: Ambulatory Orders Medication Instructions Recorded Aripiprazole [Abilify] 10 mg PO HS 05/27/12 Cholecalciferol (Vitamin D3) 1,000 unit PO D 05/27/12 [Vitamin D-3] Multivitamin [Daily Multivitamin] 1 each PO D 05/27/12 Potassium Chloride [Klor-Con M20] 20 meq PO BID 05/27/12 Rosuvastatin Calcium [Crestor] 20 mg PO D 05/27/12 Spironolactone 25 mg PO D 05/27/12 Insulin Glargine,Hum.rec.anlog 30 unit SUBCUT BID 11/12/13 [Lantus Solostar] traZODone HCL [Desyrel] 150 mg PO HS 02/24/14 Esomeprazole Magnesium [Nexium] 40 mg PO D 09/03/14 Topiramate [Topiramate] 200 mg PO BID 09/03/14 rOPINIRole HCL [Requip] 1 mg PO HS 09/03/14 Albuterol Sulfate [Proair HFA] 1 inh IH Q4 PRN 01/04/15 Sertraline HCl [Zoloft] 100 mg PO BID 01/04/15 Metoclopramide HCl [Reglan] 10 mg PO QID 05/23/15 Gabapentin [Neurontin] 200 mg PO DAILY 03/15/17 Metformin HCl [Glucophage] 1,000 mg PO [id number] 03/15/17 Mirabegron [Myrbetriq] 25 mg PO DAILY 05/25/17 Montelukast Sodium [Singulair] 10 mg PO HS 05/25/17 - SOCIAL HX Smoking History: non-smoker Alcohol Use: none Drug Use: none - FAMILY HX Family History: No - VITAL SIGNS Vital Signs: Vital Signs Temp Pulse Resp BP Pulse Ox 98.3 F 90 20 137/69 99 09/04/17 13:46 09/04/17 13:46 09/04/17 13:46 09/04/17 13:46 09/04/17 13:46 - REVIEWED ASSESSMENTS Nursing Assessment Reviewed: Yes Vitals Reviewed: Yes Sore throat Physical Exam - EXAM General Appearance: no acute distress, alert Head/Neck: head nml inspection, pain over sinuses Eyes: PERRL Mouth/Throat: lips nml, pharynx nml, voice nml, no air way problems Ear/Nose: nml inspection Respiratory: no resp. distress, wheezes (RUL, JAX,), rhonchi (RUL, RLL ) CVS: reg. rate & rhythm, heart sounds nml Abdomen: soft, no distension Extremities: non-tender Skin: warm/dry, normal color Neuro/Psych: oriented x3, mood/affect nml Discharge Clincal Impression: Bronchitis Referrals: Lucien Gracia MD [Primary Care Provider] - 2 Days Additional Instructions: 1. Azithromycin (zpack) take as directed 2. Continue use of ProAir as needed for cough 3. Tylenol or Ibuprofen as needed for pain or fever 4. Warm salt water gargles 5. Follow up with PCP in 2-4 days 6. Return to ER for increasing concerns Condition: Stable Disposition: 01 HOME, SELF-CARE Decision to Admit: NO Date of Decison to Admit: 09/04/17 Decision Time: 13:37
[2017-09-04 14:09] VITALS: BP 137/69
== END 2017-09-04 13:46 | disposition home or self-care (01) ==
LOC: ED 13:11
DX: J40 Bronchitis, not specified as acute or chronic (principal)
CPT/HCPCS: 99282

== ENCOUNTER 2017-10-16 12:49 | Emergency (ER) | payer OTHER ==
--- NOTE | 2017-10-16 13:19 | ED Physician Documentation ---
Fall - HISTORIAN Historian: patient - HPI Stated Complaint: ankle pain Chief Complaint: Fall Additional Information: Fell on parking lot / uneven concrete. Injured right ankle and scraped left elbow. no LOC. Denies other injury. No treatment attempted. Unknown last tetanus. Onset: just prior to arrival Where: other ([employer]) Context: tripped - ROS CONST: no problems - PAST HX Past History: other (IDDM, HTN) Allergies/Adverse Reactions: Allergies Allergy/AdvReac Type Severity Reaction Status Date / Time aspirin Allergy Verified 10/16/17 13:09 carbamazepine [From Tegretol] Allergy Verified 10/16/17 13:09 cephalexin monohydrate Allergy Verified 10/16/17 13:09 [From Keflex] codeine [Codeine] Allergy Verified 10/16/17 13:09 diphenhydramine Allergy Verified 10/16/17 13:09 Penicillins Allergy Verified 10/16/17 13:09 strawberry Allergy Verified 10/16/17 13:09 Sulfa (Sulfonamide Allergy Verified 10/16/17 13:09 Antibiotics) [Sulfa(Sulfonamide Antibiotics)] tramadol Allergy Verified 10/16/17 13:09 Home Medications: Ambulatory Orders Medication Instructions Recorded Aripiprazole [Abilify] 10 mg PO HS 05/27/12 Cholecalciferol (Vitamin D3) 1,000 unit PO D 05/27/12 [Vitamin D3] Multivitamin [Daily Multivitamin] 1 each PO D 05/27/12 Potassium Chloride [Klor-Con M20] 20 meq PO BID 05/27/12 Rosuvastatin Calcium [Crestor] 20 mg PO D 05/27/12 Spironolactone 25 mg PO D 05/27/12 Insulin Glargine,Hum.rec.anlog 30 unit SUBCUT BID 11/12/13 [Lantus Solostar] traZODone HCL [Desyrel] 150 mg PO HS 02/24/14 Esomeprazole Magnesium [Nexium] 40 mg PO D 09/03/14 Topiramate [Topiramate] 200 mg PO BID 09/03/14 rOPINIRole HCL [Requip] 1 mg PO HS 09/03/14 Albuterol Sulfate [Proair HFA] 1 inh IH Q4 PRN 01/04/15 Sertraline HCl [Zoloft] 100 mg PO BID 01/04/15 Metoclopramide HCl [Reglan] 10 mg PO QID 05/23/15 Gabapentin [Neurontin] 200 mg PO DAILY 03/15/17 Metformin HCl [Glucophage] 1,000 mg PO [id number] 03/15/17 Mirabegron [Myrbetriq] 25 mg PO DAILY 05/25/17 Montelukast Sodium [Singulair] 10 mg PO HS 05/25/17 - SOCIAL HX Smoking History: non-smoker - FAMILY HX Family History: no significant history - VITAL SIGNS Vital Signs: Vital Signs Temp Pulse Resp BP Pulse Ox 137/69 09/04/17 13:46 - REVIEWED ASSESSMENTS Nursing Assessment Reviewed: Yes Vitals Reviewed: Yes Progress - Progress Progress: Patient Study Name: ODELL CAPUTO Date: Oct 16, 2017 1:32:36 PM CDT Modality Type: DX Gender: F Description: UPPER EXTREMITY : 74 Institution: [facility] Physician: SOLEDAD MAYA FRANCHESCA Examination: Plain film left elbow History: PAIN AFTER FALL TODAY (Hx) Comparison exams: None provided Findings: 3 views of the left elbow demonstrate normal cortical margins. No fracture. No dislocation. Radial head is within normal limits. No joint effusion Impression: No acute osseous abnormality. Electronically signed on Oct 16, 2017 1:59:04 PM CDT by: Stanley Ham Patient Study Name: ODELL CAPUTO Date: Oct 16, 2017 1:26:15 PM CDT Modality Type: DX Gender: F Description: LOWER EXTREMITY : 74 Institution: [facility] Physician: SOLEDAD MAYA FRANCHESCA Examination: Plain film right ankle History: PAIN AFTER FALL (Hx) Findings: 3 views of the right ankle demonstrates normal cortical margins. No fracture or dislocation. Talar dome is intact. No soft tissue swelling. No joint effusion. Impression: No acute osseous process. Electronically signed on Oct 16, 2017 1:58:04 PM CDT by: Stanley Ham ED Results Lab/Radiology - Orders Orders: ED Orders Category Date Time Status Apply occlusive dressing D Care 10/16/17 13:08 Active Cleanse with NS and Chlorhexid 1T Care 06/04/18 13:08 Active ANKLE 3 VIEWS OR MORE [RAD] Stat Exams 10/16/17 Ordered ELBOW 3 VIEWS [RAD] Stat Exams 10/16/17 Ordered Diph,Pertuss(Acell),Tet Vac/Pf [Adacel] Med 10/16/17 13:10 Discontinued 0.5 ml IM .ONCE ONE Neomycin/Bacitracin/Polymyxinb [Triple Antibiotic Med 10/16/17 13:08 Discontinued Ointment] 1 each TP NOW ONE Fall Physical Exam - Physical Exam General Appearance: alert, mild distress (anxious) Head: no obvious injury Neck: painless ROM Eye: lids & conjunct. nml ENT: nml external inspection Resp/CVS: no resp. distress Neuro: CN's nml as tested, sensation nml, motor nml Skin: color nml, other (abrasions proximal left forearm) Back: other (pain free movements) Joint: joints nml (except swelling and soft tissue tenderness right lateral ankle. Active movements of left elbow w/o pain. ) Discharge Clincal Impression: Strain of right ankle Qualifiers: Encounter type: initial encounter Qualified Code(s): S96.911A - Strain of unspecified muscle and tendon at ankle and foot level, right foot, initial encounter Referrals: Lucien Gracia MD [Primary Care Provider] - 2 Days Disposition: 01 HOME, SELF-CARE Decision to Admit: NO Decision Time: 17:15
[2017-10-16] MEDS: DIPH,PERTUSS(ACELL),TET VAC/PF 0.5 ML DISP.SYRIN IM ONE (13:30)
[2017-10-16] MEDS: NEOMYCIN/BACITRACIN/POLYMYXINB 1 EACH OINT.PACK TP ONE (13:30)
[2017-10-16 13:34] VITALS: BP 132/67
--- NOTE | 2017-10-16 14:01 | Diagnostic Imaging Report ---
SOLEDAD MAYA [facility] [address] [facility] [address] [address] Report Submission Date: Oct 16, 2017 1:59:04 PM CDT Patient Study Name: ODELL CAPUTO Date: Oct 16, 2017 1:32:36 PM CDT Modality Type: DX Gender: F Description: UPPER EXTREMITY : 74 Institution: [facility] Physician: SOLEDAD MAYA Examination: Plain film left elbow History: PAIN AFTER FALL TODAY (Hx) Comparison exams: None provided Findings: 3 views of the left elbow demonstrate normal cortical margins. No fracture. No dislocation. Radial head is within normal limits. No joint effusion Impression: No acute osseous abnormality. Electronically signed on Oct 16, 2017 1:59:04 PM CDT by: Stanley RODNEY
--- NOTE | 2017-10-16 14:01 | Diagnostic Imaging Report ---
SOLEDAD MAYA [facility] [address] Count Includes [facility] [address] [address] Report Submission Date: Oct 16, 2017 1:58:04 PM CDT Patient Study Name: ODELL CAPUTO Date: Oct 16, 2017 1:26:15 PM CDT Modality Type: DX Gender: F Description: LOWER EXTREMITY : 74 Institution: [facility] Physician: SOLEDAD MAYA Examination: Plain film right ankle History: PAIN AFTER FALL (Hx) Findings: 3 views of the right ankle demonstrates normal cortical margins. No fracture or dislocation. Talar dome is intact. No soft tissue swelling. No joint effusion. Impression: No acute osseous process. Electronically signed on Oct 16, 2017 1:58:04 PM CDT by: Stanley RODNEY
== END 2017-10-16 14:33 | disposition home or self-care (01) ==
LOC: ED 12:49
DX: S96.911A Strain of unspecified muscle and tendon at ankle and foot level, right foot, initial encounter (principal); S50.311A Abrasion of right elbow, initial encounter; W19.XXXA Unspecified fall, initial encounter; Y92.9 Unspecified place or not applicable; Y93.9 Activity, unspecified; Z23 Encounter for immunization
CPT/HCPCS: 73080; 73610; 90715; L4350; 90471; 99284

== ENCOUNTER 2018-05-22 18:14 | Emergency (ER) | payer OTHER ==
[2018-05-22] MEDS ORDERED: IPRATROPIUM/ALBUTEROL SULFATE 3 ML AMPUL.NEB NEB STA (19:51)
--- NOTE | 2018-05-22 19:56 | ED Physician Documentation ---
Upper Respiratory Symptoms - HISTORIAN Historian: patient - HPI Stated Complaint: CC Chief Complaint: Cough/ Upper Respiratory Onset: days ago Context: denies: recent foreign travel, insect bite(s), tick(s), recent chemotherapy, multiple patients, same sx, other Severity: moderate Associated Symptoms: fever, chills, sore throat, productive cough Further Comments: yes (47 year old female patient presents with cough, body aches, wheezing, congestion and sinus pressure. Has not used any OTC medications; no influenza in the fall.) - ROS CONST/EYES: denies: weakness, eye redness, eye itching, other CVS/RESP: none LYMPH: denies: leg swelling, rash, swollen glands, ankle swelling, other GI/: none NEURO/PSYCH: denies: fainting, dizziness, confusion, anxiety, depression, other MS/SKIN: denies: joint pain, muscle aches, rash, other - PAST HX Lung Disease: COPD Other History: diabetes Type 2, other (bipolar) Allergies/Adverse Reactions: Allergies Allergy/AdvReac Type Severity Reaction Status Date / Time aspirin Allergy Verified 05/22/18 18:28 carbamazepine [From Tegretol] Allergy Verified 05/22/18 18:28 cephalexin monohydrate Allergy Verified 05/22/18 18:28 [From Keflex] codeine [Codeine] Allergy Verified 05/22/18 18:28 diphenhydramine Allergy Verified 05/22/18 18:28 Penicillins Allergy Verified 05/22/18 18:28 strawberry Allergy Verified 05/22/18 18:28 Sulfa (Sulfonamide Allergy Verified 05/22/18 18:28 Antibiotics) [Sulfa(Sulfonamide Antibiotics)] tramadol Allergy Verified 05/22/18 18:28 Home Medications: Ambulatory Orders Medication Instructions Recorded Aripiprazole [Abilify] 10 mg PO HS 05/27/12 Cholecalciferol (Vitamin D3) 1,000 unit PO D 05/27/12 [Vitamin D3] Multivitamin [Daily Multivitamin] 1 each PO D 05/27/12 Potassium Chloride [Klor-Con M20] 20 meq PO BID 05/27/12 Rosuvastatin Calcium [Crestor] 20 mg PO D 05/27/12 Spironolactone 25 mg PO D 05/27/12 Insulin Glargine,Hum.rec.anlog 30 unit SUBCUT BID 11/12/13 [Lantus Solostar] traZODone HCL [Desyrel] 150 mg PO HS 02/24/14 Esomeprazole Magnesium [Nexium] 40 mg PO D 09/03/14 Topiramate 200 mg PO BID 09/03/14 rOPINIRole HCL [Requip] 1 mg PO HS 09/03/14 Albuterol Sulfate [Proair HFA] 1 inh IH Q4 PRN 01/04/15 Sertraline HCl [Zoloft] 100 mg PO BID 01/04/15 Metoclopramide HCl [Reglan] 10 mg PO QID 05/23/15 Gabapentin [Neurontin] 200 mg PO DAILY 03/15/17 Metformin HCl [Glucophage] 1,000 mg PO [id number] 03/15/17 Mirabegron [Myrbetriq] 25 mg PO DAILY 05/25/17 Montelukast Sodium [Singulair] 10 mg PO HS 05/25/17 Albuterol Sulfate [Proair Hfa] 8.5 gm IH Q4H PRN #1 hfa.aer.ad 05/22/18 Azithromycin [Zithromax] 250 mg PO DAILY #6 tablet 05/22/18 Methylprednisolone [Medrol] 4 mg PO DAILY #1 tab.ds.pk 05/22/18 - SOCIAL HX Smoking History: cigarettes - FAMILY HX Family History: denies: none - VITAL SIGNS Vital Signs: Vital Signs Temp Pulse Resp BP Pulse Ox 97.6 F 98 H 20 132/67 98 05/22/18 18:22 05/22/18 18:22 05/22/18 18:22 05/22/18 18:22 05/22/18 18:22 - REVIEWED ASSESSMENTS Nursing Assessment Reviewed: Yes Vitals Reviewed: Yes Progress - Progress Progress: duoneb given in ER. wheezing resolved. ED Results Lab/Radiology - Orders Orders: ED Orders Category Date Time Status INFLUENZA A&B Stat Lab 05/22/18 18:34 Ordered Rapid Strep [GRP A STREP SCREEN] Stat Lab 05/22/18 18:25 Ordered Ipratropium/Albuterol Sulfate [Duoneb] Med 05/22/18 19:51 Discontinued 3 ml NEB STAT STA Upper Respiratory Symptoms - EXAM General Appearance: mild distress EENT: eyes nml inspection, nml ENT inspection, lids & conjunct. nml, PERRL, ear nml, nose nml, pharynx nml, airway nml. No: pharyngeal erythema, tonsillar exudate Respiratory: no resp. 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 supervisor paper coating an over the counter decongestant such as pseudoped, dayquil and Nyquil at your pharmacy. You may want to try Vicks rub on your chest and/or feet. (Caution: Dayquil and Nyquil contain 325mg of tyelnol/acetaminophen per tablespoon) Cough drops as needed for cough and sore throat. Increase your fluid intake juices, hot tea, non-caffeinated beverages Vitamin C may be helpful in decreasing the length of your cold. Use a humidifier in the room where you sleep. You can also sit in a steam filled bathroom 1-2 times a day. Tylenol every 4 hours 650mg -1000mg (do not exceed 4000mg in 24 hours) as needed for fever, pain and body aches. Alternate with Ibuprofen Ibuprofen 600-800mg every 6 hours as needed for fever, pain and body aches. See your primary care doctor if your symptoms become worse or do not improve in the next 2-3 days. Condition: Stable Disposition: 01 HOME, SELF-CARE Decision to Admit: NO Decision Time: :55
[2018-05-22 20:38] VITALS: BP 134/67
== END 2018-05-22 20:34 | disposition home or self-care (01) ==
LOC: ED 18:14
DX: J44.1 Chronic obstructive pulmonary disease with (acute) exacerbation (principal); R06.2 Wheezing; Z72.0 Tobacco use
CPT/HCPCS: 87400; 87880; 94640; 99283

== ENCOUNTER 2018-07-17 13:10 | Emergency (ER) | payer OTHER ==
[2018-07-17] MEDS: OLANZapine 5 MG TABLET PO ONE (13:40)
--- NOTE | 2018-07-17 14:07 | ED Physician Documentation ---
General Adult - HPI Stated Complaint: panic attack Chief Complaint: General Adult Additional Information: Patient presents to ED with anxiety attack. Patient reports her PCP took her off of all her medicines about 2 months ago. She states her anxiety attack came on all the sudden today. Onset: hours (1) Timing: still present Severity: moderate - ROS CONST: no problems EYES/ENT: none CVS/RESP: none GI/: none MS/SKIN/LYMPH: none NEURO/PSYCH: denies: dizziness - PAST HX Past History: hypertension Other History: diabetes Type 2 Surgeries/Procedures: none Allergies/Adverse Reactions: Allergies Allergy/AdvReac Type Severity Reaction Status Date / Time aspirin Allergy Verified 07/17/18 13:40 carbamazepine [From Tegretol] Allergy Verified 07/17/18 13:40 cephalexin monohydrate Allergy Verified 07/17/18 13:40 [From Keflex] codeine [Codeine] Allergy Verified 07/17/18 13:40 diphenhydramine Allergy Verified 07/17/18 13:40 Penicillins Allergy Verified 07/17/18 13:40 strawberry Allergy Verified 07/17/18 13:40 Sulfa (Sulfonamide Allergy Verified 07/17/18 13:40 Antibiotics) [Sulfa(Sulfonamide Antibiotics)] tramadol Allergy Verified 07/17/18 13:40 Home Medications: Ambulatory Orders Medication Instructions Recorded NK 07/17/18 - SOCIAL HX Smoking History: cigarettes Alcohol Use: none Drug Use: none - FAMILY HX Family History: No - VITAL SIGNS Vital Signs: Vital Signs Temp Pulse Resp BP Pulse Ox 134/67 05/22/18 20:36 - REVIEWED ASSESSMENTS Nursing Assessment Reviewed: Yes Vitals Reviewed: Yes ED Results Lab/Radiology - Orders Orders: ED Orders Category Date Time Status OLANZapine [Zyprexa] Med 07/17/18 13:34 Discontinued 5 mg PO NOW ONE General Adult Physical Exam - PHYSICAL EXAM GENERAL APPEARANCE: mild distress EENT: SERGEI NECK: normal inspection, supple RESPIRATORY: breath sounds normal, other (tachypnea) CVS: heart sounds normal, tachycardia ABDOMEN: soft, normal bowel sounds BACK: normal inspection SKIN: warm/dry EXTREMITIES: non-tender NEURO: oriented X3 Discharge Clincal Impression: Anxiety attack Referrals: Lucien Gracia MD [Primary Care Provider] - 2 Days Additional Instructions: 1. Follow up with PCP as soon as possible. Discuss re-starting anti-anxiety medications 2. Return to ER for new or worsening symptoms Condition: Stable Disposition: 01 HOME, SELF-CARE Decision to Admit: NO Date of Decison to Admit: 07/17/18 Decision Time: 14:23
[2018-07-17 14:28] VITALS: BP 128/73
== END 2018-07-17 14:10 | disposition home or self-care (01) ==
LOC: ED 13:10
DX: F41.0 Panic disorder [episodic paroxysmal anxiety] (principal)
CPT/HCPCS: 99282; 99283; A9270

== ENCOUNTER 2019-02-27 14:10 | Emergency (ER) | payer OTHER ==
--- NOTE | 2019-02-27 14:21 | ED Physician Documentation ---
Upper Extremity Injury - HISTORIAN Historian: patient - HPI Stated Complaint: right wrist pain Chief Complaint: Upper Extremity Injury Onset: just prior to arrival Where: home Severity: mild Duration: persistent since Context: other (just "twisting my wrist" and a "pop" and instant swelling and pain no loss of sensation ) Modifying Factors: pain on movement - ROS CONST: no problems - PAST HX Past History: none Immunizations: UTD Allergies/Adverse Reactions: Allergies Allergy/AdvReac Type Severity Reaction Status Date / Time aspirin Allergy Verified 02/27/19 14:14 carbamazepine [From Tegretol] Allergy Verified 02/27/19 14:14 cephalexin monohydrate Allergy Verified 02/27/19 14:14 [From Keflex] codeine [Codeine] Allergy Verified 02/27/19 14:14 diphenhydramine Allergy Verified 02/27/19 14:14 Penicillins Allergy Verified 02/27/19 14:14 strawberry Allergy Verified 02/27/19 14:14 Sulfa (Sulfonamide Allergy Verified 02/27/19 14:14 Antibiotics) [Sulfa(Sulfonamide Antibiotics)] tramadol Allergy Verified 02/27/19 14:14 Home Medications: Ambulatory Orders Medication Instructions Recorded Atorvastatin Calcium [Lipitor] 20 mg PO DAILY 02/27/19 Esomeprazole Magnesium [Nexium] 40 mg PO DAILY 02/27/19 Lisinopril 2.5 mg pe PO DAILY 02/27/19 Metformin HCl 500 mg PO BID 02/27/19 Mirtazapine 7.5 mg pe PO DAILY 02/27/19 Prazosin HCl 2 mg PO HS 02/27/19 Sertraline HCl 100 mg PO DAILY 02/27/19 Trazodone HCl [Desyrel] 150 mg PO HS 02/27/19 - SOCIAL HX Smoking History: non-smoker, greater than 1 pack/day Drug Use: none - FAMILY HX Family History: none - VITAL SIGNS Vital Signs: Vital Signs Temp Pulse Resp BP Pulse Ox 77 18 129/62 98 02/27/19 14:53 02/27/19 14:53 02/27/19 14:53 02/27/19 14:53 - REVIEWED ASSESSMENTS Nursing Assessment Reviewed: Yes Vitals Reviewed: Yes ED Results Lab/Radiology - Orders Orders: ED Orders Category Date Time Status WRIST 3 VIEWS OR MORE [RAD] Stat Exams 02/27/19 Ordered Upper Extremity Injury Physic - Physical Exam General Appearance: no acute distress, alert Hand: normal inspection, non-tender, no evidence of injury, normal ROM. No: bone tenderness, deformity, swelling Wrist: normal inspection, non-tender, no evidence of injury, normal ROM, bone tenderness. No: limited ROM, swelling Elbow/Forearm: normal inspection Shoulder: normal inspection Neuro/Vascular/Tendon: no vascular compromise Skin: warm,dry Head/ENT: nml inspection Neck/Back: nml inspection Resp/CVS: chest non-tender, breath sounds nml, heart sounds nml, lungs clear Abdomen: non-tender Discharge Clincal Impression: Right wrist pain Referrals: Lucien Gracia MD [Primary Care Provider] - 2 Days Comments: 1. OTC meds or ice for comfort 2. Follow up with PCP if no improvement in 4 days 3. Return to ER for any increasing concerns Condition: Stable Disposition: 01 HOME, SELF-CARE Decision to Admit: NO Date of Decison to Admit: 02/27/19 Decision Time: 14:46
[2019-02-27 14:41] VITALS: BP 129/62
--- NOTE | 2019-03-01 16:47 | Diagnostic Imaging Report ---
MORENO OSORIO [facility] [address] [facility] [address] Report Submission Date: Feb 27, 2019 2:36:51 PM CDT Patient Study Name: ODELL CAPUTO Date: Feb 27, 2019 2:10:14 PM CDT Modality Type: DX Gender: F Description: WRIST 3 VIEWS OR MORE : 74 Institution: [facility] Physician: MORENO OSORIO Examination: Plain film right wrist History: PATIENT STATES HEARD A POP AND NOW HAS PAIN X TODAY Comparison exams: None available Findings: 3 views of the right wrist demonstrate normal cortical margins. No fracture. No dislocation. No soft tissue abnormality. Impression: No acute osseous abnormality Electronically signed on Feb 27, 2019 2:36:51 PM CDT by: Stanley RODNEY
== END 2019-02-27 14:53 | disposition home or self-care (01) ==
LOC: ED 14:10
DX: M25.531 Pain in right wrist (principal)
CPT/HCPCS: 73110; 99282